=== PATIENT | male | born 1960 | race Caucasian/White ===

== ENCOUNTER 2025-07-29 09:44 | Emergency (ER) | payer OTHER ==
[~2025-07-29] VITALS: Ht 177.8 cm; Wt 113.4 kg
[2025-07-29] MEDS ORDERED: IBUP800 PO (13:05)
== END 2025-07-29 13:14 | disposition home or self-care (01) ==
LOC: ER 09:44
DX: M25.421 Effusion, right elbow (principal); Z88.0 Allergy status to penicillin
CPT/HCPCS: 73080; 99283-25